=== PATIENT | female | born 1965 | race Caucasian/White ===

== ENCOUNTER 2018-04-19 11:19 | Emergency (ER) | payer BC, OTHER ==
[2018-04-19 11:39] VITALS: BP 132/75
[2018-04-19] MEDS ORDERED: Sodium Chloride 0.9% 10 ML Syringe FLUSH PRN (12:14)
[2018-04-19] MEDS ORDERED: Sodium Chloride 0.9% 1,000 ML IV ONE (12:19)
[2018-04-19] MEDS ORDERED: Ondansetron 4 MG/2 ML SDV IVPUSH ONE (12:19)
[2018-04-19] MEDS ORDERED: Meclizine 12.5 MG Tab PO ONE (12:22)
--- NOTE | 2018-04-19 12:58 | CT ---
Head CT Technique: Multiple axial sections through the brain were obtained. Intravenous contrast was not utilized. Comparison: No previous intracranial imaging is available. Findings: Ventricles along with basal cisterns and sulci over the convexities are within normal limits for the patient's age. No abnormal parenchymal densities are seen. No evidence of intracranial hemorrhage. No midline shift or mass effect is seen. Bone window settings were reviewed which shows no acute calvarial abnormality. Visualized sinuses are clear. Impression: 1. Nothing acute is seen on noncontrast head CT exam. If patient's clinical symptoms suggest possible intracranial metastasis, MRI study with contrast then be indicated. Diagnostic code #1
--- NOTE | 2018-04-19 13:16 | CR ---
Chest: Portable view of the chest was obtained. Comparison: Prior chest x-ray of 11/23/16. Heart size is slightly enlarged. Upper mediastinum is normal. Left-sided infusion catheter is seen. Previous cervical spine surgery is noted. Central pulmonary vessels are increased which appear chronic. Impression: 1. Mild cardiomegaly and mild chronic pulmonary vascular congestion. 2. Other incidental findings. Nothing acute is appreciated. Diagnostic code #2
--- NOTE | 2018-04-19 13:45 | EDM.PDOC ---
ED HPI GENERAL MEDICAL PROBLEM - General Chief Complaint: Neurological Problem Stated Complaint: DIZZY AND LIGHTHEADED Time Seen by Provider: 04/19/18 11:43 Source of Information: Reports: Patient History Limitations: Reports: No Limitations - History of Present Illness INITIAL COMMENTS - FREE TEXT/NARRATIVE: 53-year-old female presents for evaluation and treatment of dizziness and lightheadedness. Patient reports last night she did not have any symptoms. When she woke up around 0730 this morning she reports feeling dizzy and lightheaded. She reports some "head pressure " and rates this pain as a 2 out of 10. She states her vision seemed slightly blurry but has been improving. She reports feeling more fatigued than normal. States the dizziness is constant but worse with movement. She denies any weakness, numbness, tingling, nausea, vomiting or any seizures. Patient reports that she previously has a history of migraines but states this is different from previous migraines. She is not have any history of vertigo. Patient reports on Sunday she was haying. She questions if she "over did it". patient has a history of colon cancer with metastasis to C4. She is currently seeing an oncologist every 6 months at her last visit was in early April. She states she's currently in remission. Onset: Today Right Face Pain Score (Numeric/FACES): 1 - Related Data Allergies Allergy/AdvReac Type Severity Reaction Status Date / Time adhesive Allergy Rash Verified 04/19/18 12:08 celecoxib [From Celebrex] Allergy Rash Verified 04/19/18 12:08 cyclobenzaprine Allergy Nausea and Verified 04/19/18 12:09 [From Flexeril] Vomiting ibuprofen Allergy Rash Verified 04/19/18 12:08 Home Meds: Home Meds Albuterol [Proventil HFA] 2 puff INH Q4H PRN 10/29/14 [History] Levothyroxine 150 mcg PO DAILY 10/29/14 [History] Aspirin [Halfprin] 81 mg PO BRK 09/25/17 [History] Clopidogrel Bisulfate [Clopidogrel] 75 mg PO DAILY 09/25/17 [History] Pantoprazole Sodium 40 mg PO DAILY 09/25/17 [History] atorvaSTATin [Lipitor] 80 mg PO BEDTIME 09/25/17 [History] Carvedilol [Coreg] 12.5 mg PO BID 04/19/18 [History] Meclizine HCl [Motion Sickness Relief] 25 mg PO TID PRN #30 tablet 04/19/18 [Rx] amLODIPine Besylate [Norvasc] 5 mg PO DAILY 04/19/18 [History] Past Medical History Cardiovascular History: Reports: High Cholesterol, Hypertension, [place] Respiratory History: Reports: Asthma, Pneumonia, Recurrent, SOB Neurological History: Reports: Other (See Below) Other Neuro History: neck surgery C4 Endocrine/Metabolic History: Reports: Hypothyroidism Oncologic (Cancer) History: Reports: Colon, Other (See Below) Other Oncologic History: possile spot to lung. - Past Surgical History Cardiovascular Surgical History: Reports: Other (See Below) GI Surgical History: Reports: Other (See Below) Female Surgical History: Reports: Hysterectomy Social & Family History - Tobacco Use Smoking Status *Q: Never Smoker - Caffeine Use Caffeine Use: Reports: Soda - Recreational Drug Use Recreational Drug Use: No - Living Situation & Occupation Living situation: Reports: Occupation: Employed ED ROS GENERAL - Review of Systems Review Of Systems: See Below Constitutional: Reports: Fatigue. Denies: Fever, Weakness HEENT: Denies: Ear Pain Respiratory: Denies: Shortness of Breath, Cough Cardiovascular: Reports: Lightheadedness. Denies: Chest Pain GI/Abdominal: Denies: Abdominal Pain, Nausea, Vomiting Neurological: Reports: Dizziness, Headache. Denies: Numbness, Seizure, Syncope , Tingling, Weakness ED EXAM, NEURO - Physical Exam Exam: See Below Exam Limited By: No Limitations General Appearance: Alert, WD/WN, No Apparent Distress Eye Exam: Bilateral Eye: EOMI, Normal Inspection, Nystagmus (minimal with horizontal gaze), PERRL Ears: Normal External Exam, Normal Canal, Hearing Grossly Normal, Normal TMs Nose: Normal Inspection Throat/Mouth: Normal Inspection, Normal Lips, Normal Oropharynx, Normal Voice, No Airway Compromise Head Exam: Atraumatic, Normocephalic Neck: Normal Inspection, Limited Range of Motion (of the cervical spine, chronic , from previous surgery for mets to C4) Respiratory/Chest: No Respiratory Distress, Lungs Clear, Normal Breath Sounds Cardiovascular: Normal Peripheral Pulses, Regular Rate, Rhythm, No Murmur GI/Abdominal: Soft, Non-Tender Neurological: Alert, Normal Mood/Affect, Normal Dorsiflexion, CN II-XII Intact, Normal Plantar Flexion, Other (normal heel to palm testing; smile symmetric, no slurred speech; energy project manager, dorsiflexion and plantarflexion all 5/5 bilaterally) Extremities: Normal Inspection Psychiatric: Normal Affect, Normal Mood Skin Exam: Warm, Dry, Normal Color EKG INTERPRETATION EKG Date: 04/19/18 Time: 12:30 Rhythm: NSR Rate (Beats/Min): 53 [place]: Normal P-Wave: Present QRS: Normal ST-T: Normal QT: Normal EKG Interpretation Comments: NSR at 53 bpm. No acute changes. Reviewed by myself and Dr. Johnson. Course - Vital Signs Last Recorded V/S: Last Vital Signs Temp 97.7 F 04/19/18 11:38 Pulse 51 L 04/19/18 11:38 Resp 20 04/19/18 11:38 BP 132/75 04/19/18 11:38 Pulse Ox 99 04/19/18 11:38 Orthostatic Blood Pressure [ 157/80 Standing] Orthostatic Blood Pressure [ 136/91 Sitting] Orthostatic Blood Pressure [ 117/76 Supine] - Orders/Labs/Meds Labs: Laboratory Tests 04/19/18 04/19/18 Range/Units 12:34 12:34 WBC 3.90 L (3.98-10.04) K/mm3 RBC 4.57 (3.98-5.22) M/mm3 Hgb 14.0 (11.2-15.7) gm/L Hct 41.2 (34.1-44.9) % MCV 90.2 (79.4-94.8) fl MCH 30.6 (25.6-32.2) pg MCHC 34.0 (32.2-35.5) g/dl RDW Std Deviation 42.6 (36.4-46.3) fL Plt Count 214 (182-369) K/mm3 MPV 9.3 L (9.4-12.3) fl Neut % (Auto) 42.6 (34.0-71.1) % Lymph % (Auto) 39.7 (19.3-51.7) % [place] % (Auto) 9.0 (4.7-12.5) % Eos % (Auto) 7.4 H (0.7-5.8) Baso % (Auto) 1.3 H (0.1-1.2) % Neut # (Auto) 1.66 (1.56-6.13) K/mm3 Lymph # (Auto) 1.55 (1.18-3.74) K/mm3 [place] # (Auto) 0.35 (0.24-0.36) K/mm3 Eos # (Auto) 0.29 (0.04-0.36) K/mm3 Baso # (Auto) 0.05 (0.01-0.08) K/mm3 Sodium 144 (136-145) mEq/L Potassium 4.0 (3.5-5.1) mEq/L Chloride 109 H (98-107) mEq/L Carbon Dioxide 29 (21-32) mEq/L Anion Gap 10.0 (5-15) BUN 13 (7-18) mg/dL Creatinine 1.1 H (0.55-1.02) mg/dL Est Cr Clr Drug Dosing 56.00 mL/min Estimated GFR (MDRD) 52 (>60) mL/min BUN/Creatinine Ratio 11.8 L (14-18) Glucose 101 (74-106) mg/dL Calcium 8.8 (8.5-10.1) mg/dL Total Bilirubin 0.4 (0.2-1.0) mg/dL AST 26 (15-37) U/L ALT 44 (14-59) U/L Alkaline Phosphatase 122 H (46-116) U/L Total Protein 6.9 (6.4-8.2) g/dl Albumin 3.7 (3.4-5.0) g/dl Globulin 3.2 gm/dL Albumin/Globulin Ratio 1.2 (1-2) Meds: Medications Discontinued Medications Generic Name Dose Route Start Last Admin Trade Name Freq PRN Reason Stop Dose Admin Sodium Chloride 1,000 mls @ 999 mls/hr 04/19/18 12:19 04/19/18 12:55 Normal Saline IV 04/19/18 13:19 999 mls/hr ONETIME ONE Administration Meclizine HCl 50 mg 04/19/18 12:22 04/19/18 12:56 Antivert PO 04/19/18 12:23 50 mg ONETIME ONE Administration Ondansetron HCl 4 mg 04/19/18 12:19 04/19/18 12:55 Zofran IVPUSH 04/19/18 12:20 4 mg ONETIME ONE Administration Sodium Chloride 10 ml 04/19/18 12:14 04/19/18 12:56 Saline Flush FLUSH 10 ml ASDIRECTED PRN Administration Keep Vein Open - Radiology Interpretation Free Text/Narrative:: Head CT Technique: Multiple axial sections through the brain were obtained. Intravenous contrast was not utilized. Comparison: No previous intracranial imaging is available. Findings: Ventricles along with basal cisterns and sulci over the convexities are within normal limits for the patient's age. No abnormal parenchymal densities are seen. No evidence of intracranial hemorrhage. No midline shift or mass effect is seen. Bone window settings were reviewed which shows no acute calvarial abnormality. Visualized sinuses are clear. Impression: 1. Nothing acute is seen on noncontrast head CT exam. If patient's clinical symptoms suggest possible intracranial metastasis, MRI study with contrast then be indicated. Chest: Portable view of the chest was obtained. Comparison: Prior chest x-ray of 11/23/16. Heart size is slightly enlarged. Upper mediastinum is normal. Left-sided infusion catheter is seen. Previous cervical spine surgery is noted. Central pulmonary vessels are increased which appear chronic. Impression: 1. Mild cardiomegaly and mild chronic pulmonary vascular congestion. 2. Other incidental findings. Nothing acute is appreciated. - Re-Assessments/Exams Free Text/Narrative Re-Assessment/Exam: 04/19/18 13:44 Checked on the patient. She is feeling better. Still the headache that she cannot take Toradol due to ibuprofen allergy. Informed her of her ekg, labs and imaging results. We will continue to monitor her here in the ED. Will give Valium if needed for additional dizziness relief. She declined Tylenol or any narcotics for headache at this time. 04/19/18 14:52 Checked on the patient. She is feeling much better. She was up and able to go to the bathroom. She would like to go home at this time. Will discharge home at this time with a prescription for meclizine. She has Zofran at home. Encouraged to follow-up with her primary care provider next week. Discharge instructions as documented. Departure - Departure Time of Disposition: 14:53 Disposition: Home, Self-Care 01 Condition: Fair Clinical Impression: Dizziness - Discharge Information *PRESCRIPTION DRUG MONITORING PROGRAM REVIEWED*: No *COPY OF PRESCRIPTION DRUG MONITORING REPORT IN PATIENT MARIA ESTHER: No Prescriptions: Meclizine HCl [Motion Sickness Relief] 25 mg PO TID PRN #30 tablet PRN Reason: Dizziness Instructions: Dizziness Referrals: Janel Chavez, [facility] [Primary Care Provider] - Forms: ED Department Discharge Additional Instructions: you may take your Zofran you have at home as needed for nausea. Take the meclizine 1 3 times a day as needed for dizziness. Make sure you are drinking plenty of fluids. Follow up with your primary care provider next week for recheck of your symptoms. Please return to the ER if your symptoms change or worsen.
== END 2018-04-19 15:20 | disposition home or self-care (01) ==
LOC: JD.ED 11:19
DX: R42 Dizziness and giddiness (principal); Z88.8 Allergy status to other drugs, medicaments and biological substances; I25.2 Old myocardial infarction
CPT/HCPCS: 36415; 70450; 71045; 80053; 85025; 93005; 96361; 96374; 99285; A9270; J2405; J7040; J7050

== ENCOUNTER 2019-10-12 17:28 | Emergency (ER) | payer BC ==
[2019-10-12 17:52] VITALS: BP 159/98; PULSE 68
[2019-10-12] MEDS ORDERED: Sodium Chloride 0.9% 10 ML Syringe FLUSH PRN (17:52)
[2019-10-12] MEDS ORDERED: Ondansetron 4 MG/2 ML SDV IVPUSH ONE (17:52)
[2019-10-12] MEDS ORDERED: Ketorolac 30 MG/ML SDV IVPUSH ONE (17:53)
[2019-10-12] MEDS ORDERED: HYDROmorphone 0.5 MG/0.5 ML Syringe IVPUSH ONE (17:53)
[2019-10-12] MEDS ORDERED: Sodium Chloride 0.9% 1,000 ML IV SCH (18:00)
--- NOTE | 2019-10-12 18:56 | CT ---
CT abdomen and pelvis Technique: Multiple axial sections were obtained from slightly below the top of the liver inferiorly to the pubic symphysis. Intravenous and oral contrast not utilized. Study has been performed as a ureteral stone protocol. Comparison: Previous CT abdomen and pelvis exam of 09/19/09. Findings: Visualized lung bases show slight atelectasis. Visualized liver contains no focal abnormality. Surgical clips are seen from prior cholecystectomy. Visualized spleen shows no discrete abnormality. Adrenal glands show no nodule. Pancreas is within normal limits. Aorta shows no aneurysm. No retroperitoneal adenopathy or mesenteric abnormalities are seen. No pelvic mass or adenopathy is seen. No free fluid or inflammatory change is seen. Appendix not visualized. Previous colonic surgery is noted. Kidneys show no abnormal calcifications. No ureteral dilatation or ureteral stone is seen. Bone window settings were reviewed which appear within normal limits for the patient's age. No acute osseous finding is seen. Impression: 1. No renal calculi, ureteral dilatation or ureteral stone is seen. 2. Other findings believed to be incidental. 3. Nothing acute is appreciated on noncontrast CT study of the abdomen and pelvis. Diagnostic code #2 This report was dictated in [place] Standard Time
--- NOTE | 2019-10-12 19:23 | EDM.PDOC ---
ED HPI GENERAL MEDICAL PROBLEM - General Chief Complaint: Flank Pain Stated Complaint: KIDNEY PAIN Time Seen by Provider: 10/12/19 17:50 Source of Information: Reports: Patient History Limitations: Reports: No Limitations - History of Present Illness INITIAL COMMENTS - FREE TEXT/NARRATIVE: The patient presents with left flank pain. This started yesterday. She has a history of kidney stones and she feels this is another stone. She has some nausea. She has no dysuria or hematuria. She has no fever, chills, cough, congestion or runny nose. Onset: Sudden Duration: Day(s): (Yesterday) Location: Reports: Back (Left flank) Quality: Reports: Sharp Severity: Moderate Improves with: Reports: None Worsens with: Reports: None Associated Symptoms: Reports: Nausea/Vomiting. Denies: Chest Pain, Cough, Fever /Chills, Headaches, Shortness of Breath Left Flank Pain Score (Numeric/FACES): 3 - Related Data Allergies Allergy/AdvReac Type Severity Reaction Status Date / Time adhesive Allergy Rash Verified 10/12/19 17:52 celecoxib [From Celebrex] Allergy Rash Verified 10/12/19 17:52 cyclobenzaprine Allergy Nausea and Verified 10/12/19 17:52 [From Flexeril] Vomiting ibuprofen Allergy Rash Verified 10/12/19 17:52 NSAIDS (Non-Steroidal Allergy Rash Verified 10/12/19 17:52 Anti-Inflamma Home Meds: Home Meds Albuterol [Proventil HFA] 2 puff INH Q4H PRN 10/29/14 [History] Levothyroxine 150 mcg PO DAILY 10/29/14 [History] Aspirin [Halfprin] 81 mg PO BRK 09/25/17 [History] Pantoprazole Sodium 40 mg PO DAILY 09/25/17 [History] Meclizine HCl [Motion Sickness Relief] 25 mg PO TID PRN #30 tablet 04/19/18 [Rx] amLODIPine Besylate [Norvasc] 10 mg PO DAILY 04/19/18 [History] Cranberry Fruit Extract [Cranberry] 300 mg PO DAILY 10/12/19 [History] D-Mannose [Mannose] 1 dose PO DAILY 10/12/19 [History] Fluticasone Propionate [Flovent HFA] 1 puff INH BID 10/12/19 [History] Past Medical History Cardiovascular History: Reports: High Cholesterol, Hypertension, [place] Respiratory History: Reports: Asthma, Pneumonia, Recurrent, SOB Neurological History: Reports: Other (See Below) Other Neuro History: neck surgery C4 Endocrine/Metabolic History: Reports: Hypothyroidism Oncologic (Cancer) History: Reports: Colon, Other (See Below) Other Oncologic History: possile spot to lung. neck cancer - Past Surgical History Cardiovascular Surgical History: Reports: Other (See Below) Other Cardiovascular Surgeries/Procedures: cardiac stents GI Surgical History: Reports: Other (See Below) Female Surgical History: Reports: Hysterectomy Social & Family History - Tobacco Use Smoking Status *Q: Never Smoker Second Hand Smoke Exposure: No - Caffeine Use Caffeine Use: Reports: None - Recreational Drug Use Recreational Drug Use: No - Living Situation & Occupation Living situation: Reports: Occupation: Employed ED ROS GENERAL - Review of Systems Review Of Systems: See Below Constitutional: Reports: No Symptoms HEENT: Reports: No Symptoms Respiratory: Reports: No Symptoms Cardiovascular: Reports: No Symptoms Endocrine: Reports: No Symptoms GI/Abdominal: Reports: No Symptoms, Nausea. Denies: Vomiting : Reports: Flank Pain (Left) Musculoskeletal: Reports: Back Pain (left) ED EXAM, GI/ABD - Physical Exam Exam: See Below Exam Limited By: No Limitations General Appearance: Alert, No Apparent Distress Ears: Normal External Exam Nose: Normal Inspection Head: Atraumatic, Normocephalic Neck: Normal Inspection Respiratory/Chest: No Respiratory Distress, Lungs Clear, Normal Breath Sounds Cardiovascular: Regular Rate, Rhythm, No Edema, No Murmur GI/Abdominal Exam: Soft, Non-Tender, No Organomegaly, No Mass Back Exam: CVA Tenderness (L) Extremities: Normal Inspection Neurological: Alert, Oriented, No Motor/Sensory Deficits Course - Vital Signs Last Recorded V/S: Last Vital Signs Temp 97.9 F 10/12/19 17:50 Pulse 68 10/12/19 17:50 Resp 16 10/12/19 17:50 BP 159/98 H 10/12/19 17:50 Pulse Ox 100 10/12/19 17:50 - Orders/Labs/Meds Orders: Active Orders 24 hr Category Date Time Status Peripheral IV Care [RC] . DIRECTED Care 10/12/19 17:53 Active Sodium Chloride 0.9% [Normal Saline] 1,000 ml Med 10/12/19 18:00 Active IV ASDIRECTED Sodium Chloride 0.9% [Saline Flush] Med 10/12/19 17:52 Active 10 ml FLUSH ASDIRECTED PRN ED Antiemetic Medication Reflex [OM.PC] Stat Oth 10/12/19 17:52 Ordered Peripheral IV Insertion Adult [OM.PC] Stat Oth 10/12/19 17:52 Ordered Medication Orders Sodium Chloride (Normal Saline) 1,000 mls @ 125 mls/hr IV ASDIRECTED JOSE MIGUEL Last Admin: 10/12/19 18:04 Dose: 125 mls/hr Sodium Chloride (Saline Flush) 10 ml FLUSH ASDIRECTED PRN PRN Reason: Keep Vein Open Last Admin: 10/12/19 18:05 Dose: 10 ml Labs: Laboratory Tests 10/12/19 10/12/19 10/12/19 Range/Units 18:10 18:10 18:40 WBC 5.80 (3.98-10.04) K/mm3 RBC 4.81 (3.98-5.22) M/mm3 Hgb 14.8 (11.2-15.7) gm/dl Hct 43.6 (34.1-44.9) % MCV 90.6 (79.4-94.8) fl MCH 30.8 (25.6-32.2) pg MCHC 33.9 (32.2-35.5) g/dl RDW Std Deviation 42.0 (36.4-46.3) fL Plt Count 235 (182-369) K/mm3 MPV 9.1 L (9.4-12.3) fl Neut % (Auto) 47.6 (34.0-71.1) % Lymph % (Auto) 36.4 (19.3-51.7) % [place] % (Auto) 9.0 (4.7-12.5) % Eos % (Auto) 5.9 H (0.7-5.8) Baso % (Auto) 0.9 (0.1-1.2) % Neut # (Auto) 2.77 (1.56-6.13) K/mm3 Lymph # (Auto) 2.11 (1.18-3.74) K/mm3 [place] # (Auto) 0.52 H (0.24-0.36) K/mm3 Eos # (Auto) 0.34 (0.04-0.36) K/mm3 Baso # (Auto) 0.05 (0.01-0.08) K/mm3 Sodium 144 (136-145) mEq/L Potassium 4.0 (3.5-5.1) mEq/L Chloride 105 (98-107) mEq/L Carbon Dioxide 28 (21-32) mEq/L Anion Gap 15.0 (5-15) BUN 20 H (7-18) mg/dL Creatinine 1.4 H (0.55-1.02) mg/dL Est Cr Clr Drug Dosing 43.50 mL/min Estimated GFR (MDRD) 39 (>60) mL/min BUN/Creatinine Ratio 14.3 (14-18) Glucose 102 (74-106) mg/dL Calcium 8.9 (8.5-10.1) mg/dL Total Bilirubin 0.6 (0.2-1.0) mg/dL AST 23 (15-37) U/L ALT 39 (14-59) U/L Alkaline Phosphatase 117 H (46-116) U/L Total Protein 7.4 (6.4-8.2) g/dl Albumin 4.0 (3.4-5.0) g/dl Globulin 3.4 gm/dL Albumin/Globulin Ratio 1.2 (1-2) Lipase 192 (73-393) U/L Urine Color Light yellow (Yellow) Urine Appearance Slt cloudy H (Clear) Urine pH 6.0 (5.0-8.0) Ur Specific [place] 1.025 (1.005-1.030) Urine Protein Negative (Negative) Urine Glucose (UA) Negative (Negative) Urine Ketones Negative (Negative) Urine Occult Blood Negative (Negative) Urine Nitrite Negative (Negative) Urine Bilirubin Negative (Negative) Urine Urobilinogen 0.2 (0.2-1.0) Ur Leukocyte Esterase Trace H (Negative) Urine RBC Not seen (0-5) /hpf Urine WBC 0-5 (0-5) /hpf Ur Squamous Epith Cells 10-20 H (0-5) /hpf Urine Bacteria Not seen (FEW) /hpf Urine Mucus Not seen (FEW) /hpf Meds: Medications Generic Name Dose Route Start Last Admin Trade Name Freq PRN Reason Stop Dose Admin Sodium Chloride 1,000 mls @ 125 mls/hr 10/12/19 18:00 10/12/19 18:04 Normal Saline IV 125 mls/hr ASDIRECTED JOSE MIGUEL Administration Sodium Chloride 10 ml 10/12/19 17:52 10/12/19 18:05 Saline Flush FLUSH 10 ml ASDIRECTED PRN Administration Keep Vein Open Discontinued Medications Generic Name Dose Route Start Last Admin Trade Name Kevq PRN Reason Stop Dose Admin Hydromorphone HCl 0.5 mg 10/12/19 17:53 10/12/19 18:05 Dilaudid IVPUSH 10/12/19 17:54 0.5 mg ONETIME ONE Administration Ketorolac Tromethamine 30 mg 10/12/19 17:53 10/12/19 18:04 Toradol IVPUSH 10/12/19 17:54 30 mg ONETIME ONE Administration Ondansetron HCl 4 mg 10/12/19 17:52 10/12/19 18:04 Zofran IVPUSH 10/12/19 17:53 4 mg ONETIME ONE Administration - Re-Assessments/Exams Free Text/Narrative Re-Assessment/Exam: 10/12/19 19:20 I ordered an IV NS at 125mL/hr, zofran 4mg IV, toradol 30mg IV, dilaudid 0.5mg IV, labs, UA and a CT of her abdomen and pelvis without contrast to look for a kidney stone. Her CBC looks good. Her creatinine is elevated at 1.4. Her creatinine was elevated at 1.1 the last time she was here in May. Her alk phos was slightly elevated at 117. Her lipase is negative. Her CT shows no renal calculi, ureteral dilatation or ureteral stone is seen. Other findings believed to be incidental. Nothing acute is appreciated on noncontrast CT study of the abdomen and pelvis. She feels better but I felt this truly was a kidney stone. It is not. It is musculoskeletal in nature. I will discharge her home. Departure - Departure Time of Disposition: 19:25 Disposition: Home, Self-Care 01 Condition: Good Clinical Impression: Renal insufficiency, Left flank pain - Discharge Information *PRESCRIPTION DRUG MONITORING PROGRAM REVIEWED*: Not Applicable *COPY OF PRESCRIPTION DRUG MONITORING REPORT IN PATIENT MARIA ESTHER: Not Applicable Referrals: Rima Shane MD [Primary Care Provider] - 1 Week Additional Instructions: Drink more water daily. Try to drink about 8 eight ounce glasses of water or enough so your urine is pale yellow. Take tylenol as needed for pain. Follow up with Dr Gonzalez. Please return if you are worse. Sepsis Event Note - Evaluation Sepsis Screening Result: No Definite Risk - Focused Exam Vital Signs: Vital Signs Temp Pulse Resp BP Pulse Ox 10/12/19 17:50 97.9 F 68 16 159/98 H 100 Date Exam was Performed: 10/12/19 Time Exam was Performed: 19:17 - My Orders Last 24 Hours: My Active Orders 10/12/19 17:52 Sodium Chloride 0.9% [Saline Flush] 10 ml FLUSH ASDIRECTED PRN ED Antiemetic Medication Reflex [OM.PC] Stat Peripheral IV Insertion Adult [OM.PC] Stat 10/12/19 17:53 Peripheral IV Care [RC] . DIRECTED 10/12/19 18:00 Sodium Chloride 0.9% [Normal Saline] 1,000 ml IV ASDIRECTED - Assessment/Plan Last 24 Hours: My Active Orders 10/12/19 17:52 Sodium Chloride 0.9% [Saline Flush] 10 ml FLUSH ASDIRECTED PRN ED Antiemetic Medication Reflex [OM.PC] Stat Peripheral IV Insertion Adult [OM.PC] Stat 10/12/19 17:53 Peripheral IV Care [RC] . DIRECTED 10/12/19 18:00 Sodium Chloride 0.9% [Normal Saline] 1,000 ml IV ASDIRECTED
== END 2019-10-12 19:34 | disposition home or self-care (01) ==
LOC: JD.ED 17:28
DX: N28.9 Disorder of kidney and ureter, unspecified (principal); R10.9 Unspecified abdominal pain; E03.9 Hypothyroidism, unspecified; J45.909 Unspecified asthma, uncomplicated; I25.2 Old myocardial infarction; Z91.048 Other nonmedicinal substance allergy status; Z88.6 Allergy status to analgesic agent; Z88.8 Allergy status to other drugs, medicaments and biological substances; Z79.82 Long term (current) use of aspirin; Z79.890 Hormone replacement therapy; Z79.51 Long term (current) use of inhaled steroids; Z79.899 Other long term (current) drug therapy; Z85.038 Personal history of other malignant neoplasm of large intestine
CPT/HCPCS: 36415; 74176; 80053; 81001; 83690; 85025; 96361; 96374; 96375; 99284; J1170; J1885; J2405; J7030

== ENCOUNTER 2020-04-17 13:33 | Emergency (ER) | payer BC ==
[2020-04-17 13:44] VITALS: BP 159/102; PULSE 79
[2020-04-17] MEDS ORDERED: Lidocaine 1% 10 ML MDV INJECT ONE (14:08)
[2020-04-17] MEDS ORDERED: Diphtheria,Pertussis(Acell),Tetanus Vaccine 0.5 ML Syringe IM ONE (14:10)
[2020-04-17] MEDS ORDERED: Bupivacaine 0.5% 10 ML SDV INJECT ONE (14:10)
--- NOTE | 2020-04-17 14:11 | EDM.PDOC ---
ED HPI GENERAL MEDICAL PROBLEM - General Chief Complaint: Laceration Stated Complaint: RT INDEX FINGER LAC Time Seen by Provider: 04/17/20 13:54 Source of Information: Reports: Patient History Limitations: Reports: No Limitations - History of Present Illness INITIAL COMMENTS - FREE TEXT/NARRATIVE: She has a 55-year-old female who presents with complaints of a laceration to the dorsal aspect of her right index finger. States that she was helping her change a sickle blade and her finger became pinched between the sickle blade and another object. She is unsure of when her tetanus vaccination was. She does have full range of motion of the finger. Right Finger-Index Pain Score (Numeric/FACES): 8 - Related Data Allergies Allergy/AdvReac Type Severity Reaction Status Date / Time adhesive Allergy Severe Rash Verified 04/17/20 13:45 celecoxib [From Celebrex] Allergy Severe Rash Verified 04/17/20 13:45 cyclobenzaprine Allergy Severe Nausea and Verified 04/17/20 13:45 [From Flexeril] Vomiting ibuprofen Allergy Severe Rash Verified 04/17/20 13:45 NSAIDS (Non-Steroidal Allergy Severe Rash Verified 04/17/20 13:45 Anti-Inflamma Home Meds: Home Meds Albuterol [Proventil HFA] 2 puff INH Q4H PRN 10/29/14 [History] Levothyroxine 150 mcg PO DAILY 10/29/14 [History] Aspirin [Halfprin] 81 mg PO BRK 09/25/17 [History] Pantoprazole Sodium 40 mg PO DAILY 09/25/17 [History] Meclizine HCl [Motion Sickness Relief] 25 mg PO TID PRN #30 tablet 04/19/18 [Rx] amLODIPine Besylate [Norvasc] 10 mg PO DAILY 04/19/18 [History] Cranberry Fruit Extract [Cranberry] 300 mg PO DAILY 10/12/19 [History] D-Mannose [Mannose] 1 dose PO DAILY 10/12/19 [History] Fluticasone Propionate [Flovent HFA] 1 puff INH BID 10/12/19 [History] cephALEXin [Keflex] 500 mg PO Q6H #20 cap 04/18/20 [Rx] Past Medical History Cardiovascular History: Reports: High Cholesterol, Hypertension, IN Respiratory History: Reports: Asthma, Pneumonia, Recurrent, SOB Neurological History: Reports: Other (See Below) Other Neuro History: neck surgery C4 Endocrine/Metabolic History: Reports: Hypothyroidism Oncologic (Cancer) History: Reports: Colon, Other (See Below) Other Oncologic History: possile spot to lung. neck cancer - Past Surgical History Cardiovascular Surgical History: Reports: Other (See Below) Other Cardiovascular Surgeries/Procedures: cardiac stents GI Surgical History: Reports: Other (See Below) Female Surgical History: Reports: Hysterectomy Social & Family History - Tobacco Use Smoking Status *Q: Never Smoker - Caffeine Use Caffeine Use: Reports: Coffee - Recreational Drug Use Recreational Drug Use: No - Living Situation & Occupation Living situation: Reports: Occupation: Employed ED ROS GENERAL - Review of Systems Review Of Systems: Comprehensive ROS is negative, except as noted in HPI. ED EXAM, SKIN/RASH Exam: See Below Exam Limited By: No Limitations General Appearance: Alert, WD/WN, No Apparent Distress Respiratory/Chest: No Respiratory Distress, Lungs Clear, Normal Breath Sounds, No Accessory Muscle Use, Chest Non-Tender Cardiovascular: Normal Peripheral Pulses, Regular Rate, Rhythm, No Edema, No Gallop, No JVD, No Murmur, No Rub Extremities: Other (3.5 cm vertical laceration to the dorsal aspect of the right index finger. Wound is through the fingernail, but is not gaping.) ED SKIN PROCEDURES - Laceration/Wound Repair Right Dorsal Digit - 2nd (Index) Appearance: Subcutaneous Distal NVT: Neuro & Vascular Intact, No Tendon Injury Anesthetic Type: Digital Local Anesthesia - Lidocaine (Xylocaine): 1% Plain Local Anesthesia - Bupivicaine (Marcaine): 0.5% Plain Local Anesthetic Volume: 2cc Skin Prep: Chlorhexidine (Hibiciens), Saline Exploration/Debridement/Repair: Wound Explored, No Foreign Material Found Closed with: Sutures Lac/Wound length In cm: 3.5 Suture Size: 5-0 # of Sutures: 7 Suture Type: Nylon Sterile Dressing Applied: Nurse Tetanus Status Addressed: Yes Complications: No Course - Vital Signs Last Recorded V/S: Last Vital Signs Temp 97.6 F 04/17/20 13:42 Pulse 79 04/17/20 13:42 Resp 16 04/17/20 13:42 BP 159/102 H 04/17/20 13:42 Pulse Ox 98 04/17/20 13:42 - Orders/Labs/Meds Orders: Active Orders 24 hr Category Date Time Status Vaccines to be Administered [RC] PER UNIT ROUTINE Care 04/17/20 14:10 Active Meds: Medications Discontinued Medications Generic Name Dose Route Start Last Admin Trade Name Leonor PRN Reason Stop Dose Admin Bupivacaine HCl 10 ml 04/17/20 14:10 04/17/20 14:36 Sensorcaine-Mpf 0.5% INJECT 04/17/20 14:11 10 ml ONETIME ONE Administration Diphtheria/Tetanus/Acell Pertussis 0.5 ml 04/17/20 14:10 04/17/20 14:34 Adacel IM 04/17/20 14:11 0.5 ml .ONCE ONE Administration Lidocaine HCl 10 ml 04/17/20 14:08 04/17/20 14:37 Xylocaine 1% INJECT 04/17/20 14:09 10 ml ONETIME ONE Administration - Re-Assessments/Exams Free Text/Narrative Re-Assessment/Exam: 04/17/20 16:05 Was completed and shows no fractures of the finger. Digital block was used and laceration was closed with sutures. See procedure notes. Discharge instructions as documented. 04/18/20 12:22 Radiologist read of the x-ray received today. He is seeing a fracture within the distal phalanx of the right second finger extending into the DIP joint. It is nondisplaced. I did call and speak with the patient. Recommend that she use an aluminum splint for the next couple weeks. I will send a prescription for Keflex to [facility] and she will pick it up today. Departure - Departure Time of Disposition: 16:05 Disposition: Home, Self-Care 01 Condition: Good Clinical Impression: Laceration - Discharge Information *PRESCRIPTION DRUG MONITORING PROGRAM REVIEWED*: No *COPY OF PRESCRIPTION DRUG MONITORING REPORT IN PATIENT MARIA ESTHER: No Prescriptions: cephALEXin [Keflex] 500 mg PO Q6H #20 cap Instructions: Sutures, Orion, or Adhesive Wound Closure, [id number] Referrals: Leeann Johnstno MD [Primary Care Provider] - Forms: ED Department Discharge Additional Instructions: You were seen in the emergency department today for a laceration to your right index finger. The wound was cleansed and closed with 7 sutures. These should stay intact for 7-10 days. After that time they may be removed in the clinic by a nurse. Keep the wound clean and dry. Wash with normal soap and water twice daily. Do not submerge the wound in water. Watch for signs of infection including increased redness, swelling, or purulent drainage. If these should occur, you should be seen either in the clinic or in the emergency department as antibiotic treatment may be needed. Return to the ER as needed. Sepsis Event Note (ED) - Evaluation Sepsis Screening Result: No Definite Risk - My Orders Last 24 Hours: My Active Orders 04/17/20 14:10 Vaccines to be Administered [RC] PER UNIT ROUTINE - Assessment/Plan Last 24 Hours: My Active Orders 04/17/20 14:10 Vaccines to be Administered [RC] PER UNIT ROUTINE
--- NOTE | 2020-04-18 12:06 | CR ---
Right 2nd finger: 4 views of the right 2nd finger were obtained. Comparison: No prior finger or hand study is available. Fracture is identified within the distal phalanx of the right 2nd finger. Fracture extends into the DIP joint. Alignment remains close to anatomic. Soft tissue swelling is noted. No additional fracture or other abnormality is appreciated. Impression: 1. Right 2nd finger fracture as described above. Diagnostic code #3 This report was dictated in MDT
== END 2020-04-17 16:40 | disposition home or self-care (01) ==
LOC: JD.ED 13:33
DX: S61.210A Laceration without foreign body of right index finger without damage to nail, initial encounter (principal); I10 Essential (primary) hypertension; I25.2 Old myocardial infarction; J45.909 Unspecified asthma, uncomplicated; E03.9 Hypothyroidism, unspecified; Z23 Encounter for immunization; Z79.82 Long term (current) use of aspirin; Z79.899 Other long term (current) drug therapy; Z91.048 Other nonmedicinal substance allergy status; Z88.8 Allergy status to other drugs, medicaments and biological substances; Z88.6 Allergy status to analgesic agent; W23.0XXA Caught, crushed, jammed, or pinched between moving objects, initial encounter
CPT/HCPCS: 12002; 73140; 90471; 90715; 99283; J2001; J3490

== ENCOUNTER 2021-11-24 08:34 | Day surgery (SDC) | payer BC, OTHER ==
[~2021-11-24 08:34] MED LIST: Albuterol 0.083% 2.5 MG/3 ML Neb Soln NEB PRN; Lactated Ringers 1,000 ML IV SCH; Lidocaine 1%/Sod Bicarbonate in NS 8.4% 1 ML Syringe IDERM PRN; Scopolamine 1.5 MG Transdermal Patch TRDERM PRN; Sodium Chloride 0.9% 10 ML Syringe FLUSH PRN; Sodium Chloride 0.9% 10 ML Syringe FLUSH SCH
[2021-11-24] MEDS ORDERED: Lactated Ringers 1,000 ML ONE (09:32)
[2021-11-24] MEDS ORDERED: fentaNYL 100 MCG/2 ML SDV ONE (09:33)
[2021-11-24] MEDS ORDERED: Propofol 200 MG/20 ML SDV ONE ×2 (09:33→10:00)
[2021-11-24] MEDS ORDERED: Midazolam 1 MG/ML 2 ML SDV ONE (09:33)
[2021-11-24] MEDS ORDERED: Ondansetron 4 MG/2 ML SDV IVPUSH PRN (09:51)
[2021-11-24] MEDS ORDERED: Ondansetron 4 MG/2 ML SDV ONE (09:52)
[2021-11-24 11:32] VITALS: BP 122/71; PULSE 65
== END 2021-11-24 11:12 | disposition home or self-care (01) ==
LOC: JD.SDS 08:34
PROVIDERS: ATTEND Surgery
DX: R19.8 Other specified symptoms and signs involving the digestive system and abdomen (principal); J45.909 Unspecified asthma, uncomplicated; I25.10 Atherosclerotic heart disease of native coronary artery without angina pectoris; K21.9 Gastro-esophageal reflux disease without esophagitis; I10 Essential (primary) hypertension; E78.00 Pure hypercholesterolemia, unspecified; E03.9 Hypothyroidism, unspecified; G43.909 Migraine, unspecified, not intractable, without status migrainosus; G62.9 Polyneuropathy, unspecified; E55.9 Vitamin D deficiency, unspecified; I25.2 Old myocardial infarction; Z90.49 Acquired absence of other specified parts of digestive tract; G47.33 Obstructive sleep apnea (adult) (pediatric); Z98.890 Other specified postprocedural states; Z98.0 Intestinal bypass and anastomosis status; Z85.038 Personal history of other malignant neoplasm of large intestine; Z88.8 Allergy status to other drugs, medicaments and biological substances; Z79.899 Other long term (current) drug therapy; Z79.82 Long term (current) use of aspirin
CPT/HCPCS: 45378; A9270; J2250; J2370; J2405; J2704; J3010; J7120

== ENCOUNTER 2024-04-03 05:00 | Day surgery (SDC) | payer BC ==
[~2024-04-03 05:00] MED LIST changes: -Albuterol 0.083% 2.5 MG/3 ML Neb Soln NEB PRN; -Lactated Ringers 1,000 ML IV SCH; -Lidocaine 1%/Sod Bicarbonate in NS 8.4% 1 ML Syringe IDERM PRN; -Scopolamine 1.5 MG Transdermal Patch TRDERM PRN
[2024-04-03] MEDS: Lactated Ringers 1,000 ML IV SCH (07:35)
[2024-04-03] MEDS: oxyCODONE ER 10 MG TAB.ER PO SCH (07:50)
[2024-04-03] MEDS: Acetaminophen 325 MG Tab PO SCH (07:50)
[2024-04-03] MEDS: Pregabalin 25 MG Cap PO SCH (07:50)
[2024-04-03] MEDS ORDERED: Scopalamine 1mg/3day Transdermal Patch TOP ONE (08:00)
[2024-04-03] MEDS ORDERED: Propofol 200 MG/20 ML SDV ONE ×2 (08:08→09:38)
[2024-04-03] MEDS ORDERED: Midazolam 1 MG/ML 2 ML SDV ONE (08:08)
[2024-04-03] MEDS ORDERED: Ropivacaine 0.5% 5 MG/ML 30 ML SDV ONE (08:17)
[2024-04-03] MEDS ORDERED: Phenylephrine 1% 10 MG/ML SDV ONE (09:35)
[2024-04-03] MEDS ORDERED: Ondansetron 4 MG/2 ML SDV ONE (09:57)
[2024-04-03] MEDS: Morphine 8 MG, EPINEPHrine 0.3 MG, Cefuroxime 750 MG, Sodium Chloride 0.9% 7.9 ML PRN (10:13)
[2024-04-03] MEDS ORDERED: ceFAZolin 2 GM Vial ONE (10:13)
[2024-04-03] MEDS: Tranexamic Acid 1,000 MG/10 ML Vial ONE (10:21)
[2024-04-03] MEDS: Vancomycin 1 GM SDV ONE (10:21)
[2024-04-03] MEDS: Triamcinolone Acetonide 40 MG/ML 1 ML SDV ONE (10:40)
[2024-04-03] MEDS: Bupivacaine 0.25% 10 ML SDV ONE (10:40)
[2024-04-03] MEDS: oxyCODONE 5 MG Tab PO PRN (12:00)
[2024-04-03] MEDS: Scopalamine 1mg/3day Transdermal Patch TOP ONE (13:10)
[2024-04-03 14:01] VITALS: BP 106/69; PULSE 72
== END 2024-04-03 13:53 | disposition home or self-care (01) ==
LOC: JD.SDS 05:00
PROVIDERS: ATTEND Orthopaedic Surgery
DX: M17.0 Bilateral primary osteoarthritis of knee (principal); J45.909 Unspecified asthma, uncomplicated; I25.10 Atherosclerotic heart disease of native coronary artery without angina pectoris; K21.9 Gastro-esophageal reflux disease without esophagitis; E78.00 Pure hypercholesterolemia, unspecified; E03.9 Hypothyroidism, unspecified; Z79.890 Hormone replacement therapy; Z79.82 Long term (current) use of aspirin; Z79.899 Other long term (current) drug therapy; Z88.8 Allergy status to other drugs, medicaments and biological substances; Z91.048 Other nonmedicinal substance allergy status
CPT/HCPCS: 0055T; 20610; 27447; 64447; 73560; 97110; 97161; A9270; C1713; C1776; J0171; J0665; J0690; J0697; J2250; J2270; J2371; J2405; J2704; J2795; J3301; J3370; J7120; 01402; J3490

== ENCOUNTER 2024-09-11 06:51 | Day surgery (SDC) | payer BC ==
[2024-09-11] MEDS: Lactated Ringers 1,000 ML IV SCH (07:00)
[2024-09-11] MEDS ORDERED: Propofol 200 MG/20 ML SDV ONE ×2 (07:07→07:41)
[2024-09-11] MEDS ORDERED: Lidocaine 1% 4 ML ONE (07:07)
[2024-09-11 10:25] VITALS: BP 120/81; PULSE 72
== END 2024-09-11 08:57 | disposition home or self-care (01) ==
LOC: JD.SDS 06:51
PROVIDERS: ATTEND Surgery
DX: Z12.11 Encounter for screening for malignant neoplasm of colon (principal); K21.00 Gastro-esophageal reflux disease with esophagitis, without bleeding; K57.30 Diverticulosis of large intestine without perforation or abscess without bleeding; K44.9 Diaphragmatic hernia without obstruction or gangrene; I25.10 Atherosclerotic heart disease of native coronary artery without angina pectoris; K21.9 Gastro-esophageal reflux disease without esophagitis; I10 Essential (primary) hypertension; E78.00 Pure hypercholesterolemia, unspecified; E03.9 Hypothyroidism, unspecified; Z85.038 Personal history of other malignant neoplasm of large intestine; Z88.8 Allergy status to other drugs, medicaments and biological substances; Z91.09 Other allergy status, other than to drugs and biological substances; Z79.899 Other long term (current) drug therapy; Z79.82 Long term (current) use of aspirin; Z79.890 Hormone replacement therapy
CPT/HCPCS: 43239; 45378; J2704; J7120; 00813; J3490

== ENCOUNTER 2025-09-17 07:00 | Day surgery (SDC) | payer BC ==
[~2025-09-17 07:00] MED LIST changes: +Morphine 8 MG, EPINEPHrine 0.3 MG, Cefuroxime 750 MG, Ketorolac 30 MG, Sodium Chloride ... PRN; +Morphine 8 MG, EPINEPHrine 0.3 MG, Cefuroxime 750 MG, Sodium Chloride 0.9% 7.9 ML PRN
[2025-09-17] MEDS: Lactated Ringers 1,000 ML IV SCH (07:05)
[2025-09-17] MEDS: Scopalamine 1mg/3day Transdermal Patch TRDERM PRN (07:28)
[2025-09-17] MEDS: oxyCODONE ER 10 MG TAB.ER PO SCH (07:28)
[2025-09-17] MEDS ORDERED: Ondansetron 4 MG/2 ML SDV IVPUSH PRN (07:42)
[2025-09-17] MEDS ORDERED: fentaNYL 100 MCG/2 ML SDV IVPUSH PRN (07:42)
[2025-09-17] MEDS ORDERED: fentaNYL 100 MCG/2 ML SDV ONE (07:46)
[2025-09-17] MEDS ORDERED: Midazolam 1 MG/ML 2 ML SDV ONE (07:46)
[2025-09-17] MEDS ORDERED: Propofol 200 MG/20 ML SDV ONE ×2 (07:46→09:54)
[2025-09-17] MEDS ORDERED: Ondansetron 4 MG/2 ML SDV ONE (07:47)
[2025-09-17] MEDS ORDERED: Ketamine HCL/NACL, ISO-OSM 50 MG/5 ML Syringe ONE (07:47)
[2025-09-17] MEDS ORDERED: Ketorolac 30 MG/ML SDV ONE (09:30)
[2025-09-17] MEDS ORDERED: Lactated Ringers 1,000 ML ONE (09:32)
[2025-09-17] MEDS ORDERED: ePHEDrine 50 MG/ML SDV ONE (09:32)
[2025-09-17] MEDS: Morphine 8 MG, EPINEPHrine 0.3 MG, Cefuroxime 750 MG, Sodium Chloride 0.9% 7.9 ML PRN (10:25)
[2025-09-17] MEDS ORDERED: Ropivacaine 0.5% 5 MG/ML 30 ML SDV ONE (11:08)
[2025-09-17 13:53] VITALS: BP 105/70; PULSE 70
== END 2025-09-17 14:03 | disposition home or self-care (01) ==
LOC: JD.SDS 07:00
PROVIDERS: ATTEND Orthopaedic Surgery
DX: M17.11 Unilateral primary osteoarthritis, right knee (principal); I25.10 Atherosclerotic heart disease of native coronary artery without angina pectoris; I10 Essential (primary) hypertension; E78.00 Pure hypercholesterolemia, unspecified; E03.9 Hypothyroidism, unspecified; E66.9 Obesity, unspecified; Z88.8 Allergy status to other drugs, medicaments and biological substances; Z91.09 Other allergy status, other than to drugs and biological substances; Z79.899 Other long term (current) drug therapy; Z79.82 Long term (current) use of aspirin; Z79.890 Hormone replacement therapy
CPT/HCPCS: 0055T; 27447; 73560; 97116; 97161; A9270; J0169; J0690; J0697; J1885; J2250; J2272; J2405; J2704; J2795; J3010; J3373; J7120; C1713; C1776; J3490